=== PATIENT | male | born 1995 | race African-American/Black ===

== ENCOUNTER 2017-01-07 22:12 | Emergency (ER) | payer SELFPAY ==
[~2017-01-07] VITALS: Ht 175.3 cm; Wt 90.7 kg
[2017-01-07] MEDS ORDERED: Lidocaine 2% 20mg/ml/Epi 0.005mg/ml 20ml vial INJ ONE (23:15)
[2017-01-07] MEDS ORDERED: BACITRACIN ZIN1 EACH TOPIC (23:39)
[2017-01-07 23:53] VITALS: BP 120/88
[2017-01-07 23:54] VITALS: BP 120/86
--- NOTE | 2017-01-08 02:04 | Emergency Room Report ---
History of Present Illness General Chief Complaint: Laceration Source: Patient Present Illness HPI Patient is a 21-year-old male presented after increased pain to his right hand. The patient reported having his hand with a screwdriver accidentally. Patient said he was attempting to repair car. Patient denied pulsatile bleeding he denied numbness to his finger. He reported having some pain to his hand. Injury occurred approximately one to 2 hours prior to arrival. He denies other locations of pain. The patient states he is right-hand dominant.He reports having tetanus vaccine less than 5 years ago. He states he works at [employer] Allergies: Coded Allergies: No Known Allergies (Unverified , 01/07/17) Patient History Past Medical History: see triage record Reviewed Nursing Documentation: PMH: Agreed, PSxH: Agreed Nursing Documentation-PMH Past Medical History: No History, Except For Hx Asthma: Yes Review of Systems All Other Systems: negative except mentioned in HPI Physical Exam Vital Signs Date Time Temp Pulse Resp B/P Pulse Ox O2 Delivery O2 Flow Rate FiO2 01/07/17 22:46 98.2 86 16 120/86 100 General Appearance: well appearing, no apparent distress, alert, GCS 15 Head: normocephalic, atraumatic ENT: hearing grossly normal, normal voice Neck: full range of motion, supple Respiratory: no respiratory distress, speaking full sentences Musculoskeletal: no calf tenderness Neurologic: normal inspection, alert, oriented x3, responsive, normal gait Psychiatric: mood/affect normal Skin: no rash, laceration - right hand dorsum ulnar side. 2 cm Procedures Laceration/Wound Repair Laceration/Wound Repair : Consent: Verbal Wound Location: upper extremity Wound's Depth, Shape: linear Wound Length (cm): 2 Wound Explored: clean Irrigated w/ Saline (ccs): 50 Betadine Prep?: Yes Wound Debrided: minimal Wound Repaired With: ирина Suture Size/Type: 4:0 Number of Sutures: 4 Layer Closure?: No Patient Tolerated: Well Complications: None Medical Decision Making Diagnostic Impression: Primary Impression: Laceration ER Course Patient presented for laceration. Differential diagnoses included foreign body , nerve injury, arterial injury among others. Patient's benign exam and does not appear to require any further imaging or laboratory testing at this time. Wound is irrigated. The laceration was closed with sutures. Patient was advised suture removal in 10-14 days . The patient is advised to follow up with primary care doctor in 3 days. Patient is advised to return if any worsening condition or if any changes in status that are concerning. Last Vital Signs Date Time Temp Pulse Resp B/P Pulse Ox O2 Delivery O2 Flow Rate FiO2 01/07/17 23:54 98.2 16 120/86 100 01/07/17 22:46 86 Status: improved Disposition: HOME, SELF-CARE Condition: Stable Scripts Bacitracin Zinc* (BACITRACIN ZINC*) 1 Each Packet 1 APPLIC TOPIC THREE TIMES A DAY, #30 PACKET Prov: Herbert Cope 01/07/17 Referrals: NOT CHOSEN IPA/MD,REFERRING (PCP) Patient Instructions: Laceration Care, Adult Herbert Cope Jan 08, 2017 02:04
== END 2017-01-07 23:55 | disposition home or self-care (01) ==
LOC: EMR 23:01
DX: S61.411A Laceration without foreign body of right hand, initial encounter (principal); W27.0XXA Contact with workbench tool, initial encounter; Y92.89 Other specified places as the place of occurrence of the external cause; J45.909 Unspecified asthma, uncomplicated